=== PATIENT | female | born 1960 | race Caucasian/White ===

== ENCOUNTER 2020-04-02 11:49 | Observation (INO) | payer OTHER, SELFPAY ==
[2020-04-02] VITALS (8 sets, daily range): BP systolic 116–156; BP diastolic 69–83; PULSE 92–102; RESP 17–19; TEMP 36.2–36.8; O2SAT 94–96; BMI 36.4; BMI 36.6; BMI 36.7
--- NOTE | 2020-04-02 12:05 | EKG12_ITS ---
Test Reason : CP Blood Pressure : / mmHG Vent. Rate : 096 BPM Atrial Rate : 096 BPM P-R Int : 146 ms QRS Dur : 122 ms QT Int : 368 ms P-R-T Axes : 036 020 021 degrees QTc Int : 464 ms Normal sinus rhythm Right bundle branch block Abnormal ECG Confirmed by HERNESTO STEWART, TORIBIO ([id number]), communications editor GI CHO ([id number]) on 04/05/2020 11:25:51 AM Referred By: Confirmed By:TORIBIO ERIC MD
--- NOTE | 2020-04-02 12:05 | RAD_ITS ---
STUDY: X-RAY CHEST REASON FOR EXAM: Female, 59 years old. Onset CP this morning, left arm and jaw pain TECHNIQUE: Single AP portable view of the chest. COMPARISON: 07/10/2017 FINDINGS: The lungs are clear and expanded. There is no demonstrated pleural abnormality. Normal size heart. Normal mediastinum and mary. Normal visualized pulmonary arteries. Normal visualized aortic arch and descending thoracic aorta. Normal visualized thoracic spine. Normal visualized ribs, clavicles, and shoulders. There is no demonstrated abnormality of the visualized soft tissue structures of the upper abdomen. RAD/Chest 1 View (Portable) IMPRESSION: Normal x-ray examination of the chest. Electronically Signed: Serg Nugent MD at 12:36 EDT Tel , Service support ,
--- NOTE | 2020-04-02 12:09 | ED.DCSUM_ITS ---
- ER Visit Summary Date of Service: 04/02/20 Chief Complaint: [Chest pain] History of Present Illness: The patient is a 59 F [presents the emergency department complaint of chest discomfort that started around 7 AM. Patient states that initially she had discomfort as kind of started in her left armpit and left chest. Patient then noted some discomfort in her shoulder as well as neck and jaw and left arm. Symptoms initially somewhat continuous but seems to have let up at this time. Patient initially took 4 baby aspirin at home. Patient denied any nausea or vomiting with this as well as denied any shortness of breath. She is never had discomfort like this before. She states that she got a little bit sweaty while waiting for EMS to get there. Patient states that there is a significant family history of heart disease as she has a father who had a heart attack in his 40s and siblings that have all had heart attacks in their 50s. Her last stress test was in 2004 and was normal at that time. Patient has history of diabetes, hypertension, high cholesterol, and hypothyroidism. She denies recent travel or surgery. She has no history of PE or DVT.] Physical Examination: [HEENT-PERRLA, EOMI. Cranial nerves II through XII grossly intact. TMs clear. Mucous membranes moist. No adenopathy. Cardiovascular-regular rate and rhythm without murmur or ectopy Lungs-clear to auscultation, chest wall stable without crepitus or subcu emphysema Abdomen-normoactive bowel sounds, soft, nontender, no rebound or rigidity, no peritoneal signs. Extremities-intact ?4, normal range of motion, normal pulses, atraumatic] Test Results: [EKG obtained arrival shows sinus rhythm with a ventricular rate of 96 bpm with a right bundle branch block.] CBC with it was unremarkable. Chemistries unremarkable. Her blood glucose was elevated 360. Troponin was less than 0.015. Chest x-ray showed nothing acute. Emergency Department Course and Treatment: [IV line was established on arrival. Patient had already taken aspirin at home. Patient had an inch of Nitropaste placed to the anterior chest wall. 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 Patient heart score is a 6.] Disposition: [Admit] Impression: [Chest pain-rule out acute coronary syndrome] This note was generated with Dragon dictation software. It may contain incorrect words, spelling, and punctuation that were not noted in review of the chart prior to signing ED Disposition - Plan for ED Patient: Referrals: Marifer Edward DO [Primary Care Provider] -
[2020-04-02] MEDS: Nitroglycerin Oint 1 INCH PACKET TRANSDERM. (12:18)
[2020-04-02 12:20] LABS: Absolute Lymphocyte Count 1.86 X10^3/uL (0.83-4.51); Absolute Neutrophil Count 4.4 X10^3/uL (2.0-7.7); Basophil# 0.05 X10^3/uL; Basophil% 0.7 % (0-1); Eosinophil# 0.21 X10^3/uL; Hematocrit 42.8 % (37-47); Hemoglobin 14.1 g/dL (12.0-15.0); Lymphocyte # 1.86 X10^3/ul (4.0); Lymphocyte % 26.6 % (19-41); Mean Corp Hgb Conc 32.9 g/dL (32-36); Mean Corpuscular Hgb 27.6 pg (27.0-32.0); Mean Corpuscular Volume 83.8 fL (81-99); Mean Platelet Vol. 8.9 fl (6.2-12.0); Monocyte# 0.48 X10^3/uL; Monocyte% 6.9 % (0-10); NRBC Flagged by Analyzer 0 % (0-5); Neutrophil # 4.35 X10^3/uL (2.7-7.7); Neutrophil % 62.2 % (47-70); Platelet Count 235 K/mm3 (150-450); RBC Distribution Width CV 13.5 % (11.6-14.6); RBC Distribution Width SD 41.3 fl (35.1-43.9); Red Blood Count 5.11 M/mm3 (4.2-5.4)
[2020-04-02] MEDS: 0.9% Normal Saline 1,000 ML 150 ML IV ×2 (12:31→18:58)
[2020-04-02 12:32] LABS: Anion Gap 6 (5-15); BUN 26 mg/dL (7-18); BUN/Creat Ratio 20.3 RATIO (10-20); Calcium,Total 8.9 mg/dL (8.5-10.1); Chloride 98 mmol/L (98-107); Creatinine, Serum 1.28 mg/dL (0.55-1.02); EST Glomerular Filtration Rate 45 mL/min (>60); Est Glom Filt Rate - Afr Amer 54 mL/min (>60); Estimated Creatinine Clearance 49.91 ml/min; Glucose 360 mg/dL (74-106); Potassium 4.6 mmol/L (3.5-5.1); Sodium Level 135 mmol/L (136-145)
--- NOTE | 2020-04-02 12:39 | HP.PCM_ITS ---
History of Present Illness Date of Admission: 04/02/20 Chief Complaint: chest pain The patient is a 59 year old F with a past medical history of diabetes mellitus, hypertension and hyperlipidemia. She was admitted through the ED on 04/02/2020 with a complaint of left-sided chest pain was started in the early hours of this morning at around 7 AM. She denies the pain was sharp or pressure-like but just this was an uncomfortable feeling that was present in the left side, beneath her left breast. She denied any associated lightheadedness or palpitations and denied any dizziness. 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 This increased sweating resolved immediately she got into the squad vehicle. She has not had pain like this before. However she does have a very strong family history of heart disease and states her 5 siblings have all had heart disease with a couple of her siblings in their 50s from heart disease. Her father also from heart disease in his 60s and her mother also had heart disease though she lived to be in her 80s. She denies any history of long distance travel no any history of DVT or PE. In the ED, at time of review, vitals showed temperature of 98.2 with blood pressure of 136/75, pulse rate of 97 and respiratory of 19. She was saturating at 96% on room air. Chemistry showed creatinine of 1.28 with sodium of 135 and initial troponin was negative. CBC was unremarkable. Chest x-ray showed no acute cardiopulmonary process. EKG showed normal sinus rhythm with right bundle branch block which was not present on previous EKGs. She does say that she did an EKG at PCPs office and was abnormal and so she was supposed to have an outpatient echo done but has not yet done it. D-dimer is pending. She has been admitted to be managed for chest pain rule out ACS. [] Past Medical History Past Medical History (Chronic Problems): Chronic Problems Hyperglyceridemia (Chronic) Hypothyroidism (Chronic) Type II diabetes mellitus (Chronic) Allergies Penicillins Allergy (Verified 06/25/14 12:05) Unknown Sulfa (Sulfonamide Antibiotics) Allergy (Verified 04/02/20 11:55) Rash Home Medications: Ambulatory Orders Medication Instructions Recorded Aspirin [Aspirin, Baby] 81 mg PO DAILY@0800 06/25/14 Cholecalciferol (Vitamin D3) 50,000 unit PO QWEEK 06/25/14 [Vitamin D3] Levothyroxine [Synthroid] 100 mcg PO DAILY 06/25/14 metFORMIN (XR) [Glucophage Xr] 1,000 mg PO DAILY 06/25/14 Hydrochlorothiazide 12.5 mg PO DAILY 08/24/14 Lisinopril [Zestril] 20 mg PO DAILY 08/24/14 Multivitamins,Therapeutic 1 tablet PO DAILY 08/24/14 [Multivitamin] Atenolol [Tenormin (beta liss)] 12.5 mg PO DAILY 08/31/14 Fenofibric Acid [Fenoglide] 135 mg PO DAILY 04/02/20 Insulin Glargine,Hum.rec.anlog 65 units SQ DAILY 04/02/20 [Violet Chacon] Surgical History: noncontributory Psychiatric History: No pertinent psych hx [employer] History: No pertinent [employer] history Lives: Alone Smoking Status: Never smoker Alcohol: None Drugs: None - *Family History Maternal History Items: Hypertension Paternal History Items: Heart Disease Sibling History Items: Heart Disease Review of Systems Constitutional: Denies: Chills, Fever, Weight Change HEENT: Denies: Head Aches, Sinus Congestion, Sinus Drainage Cardiovascular: Reports: Chest Pain, Chest Pressure, Chest Tightness. Denies: Heaviness, Light Headedness, Orthopnea, Palpitations, Paroxysmal Noc. Dyspnea Respiratory: Denies: Cough, Shortness of breath at rest, Sputum production Gastrointestinal: Denies: Abdominal Pain, Nausea, Vomiting Genitourinary: Denies: Dysuria Musculoskeletal: Denies: Joint Pain, Joint Tenderness Skin: Denies: Rash, Wounds Neurological: Denies: Numbness, Tingling, Focal weakness Psychiatric: Denies: Anxiety, Depression, Homicidal Ideations, Suicidal Ideations Hematologic/ Lymphatic: Denies: Easy Bruising, Easy Bleeding VTE Information - Inpt Only VTE Present on Admission: No VTE Pharm Prophylaxis ordered?: Yes - Physical Exam Vitals/I&O's: Vital Signs Temp Pulse Resp BP Pulse Ox 98.1 F 102 H 17 156/83 H 96 04/02/20 11:50 04/02/20 11:50 04/02/20 11:50 04/02/20 11:50 04/02/20 11:50 Oxygen Delivery Method Room Air Weight: 254 lb 3.088 oz Body Mass Index (BMI) 36.4 Finger Stick Blood Glucose 180 General: Alert, Oriented x3, Cooperative HEENT: Atraumatic, PERRLA, EOMI, Normocephalic Oral: Moist Mucosa Neck: Supple, No JVD, Negative Carotid Bruits Lungs: Clear to auscultation, Normal air movement, No rhonchi, No wheeze, No rales Cardiovascular: Regular rate, Regular Rhythm, Normal S1, Normal S2, No murmurs Abdomen: Bowel Sounds Present, Soft, Non Tender, Non-Distended, No Hepato- splenomegaly Extremities: No clubbing, No cyanosis, No edema, Capillary Refill Less than 3 Seconds Skin: No rashes, No breakdown Musculoskeletal: No Tenderness to Palpation of Joints or Extremities Neurological: Cranial nerves II-XII grossly intact Psych/Mental Status: Normal Affect, Appropriate, Alert and oriented to time, place, person, mood and affect Laboratory Results 04/02/20 12:08: WBC 7.0, RBC 5.11, Hgb 14.1, Hct 42.8, MCV 83.8, MCH 27.6, MCHC 32.9, RDW Std Deviation 41.3, RDW Coeff of Renita 13.5, Plt Count 235, MPV 8.9, Immature Gran % (Auto) 0.600, Neut % (Auto) 62.2, Lymph % (Auto) 26.6, [place] % (Auto) 6.9, Eos % (Auto) 3.0, Baso % (Auto) 0.7, Absolute Neuts (auto) 4.4, Absolute Lymphs (auto) 1.86, Nucleated RBC % 0 04/02/20 12:08: Sodium 135 L, Potassium 4.6, Chloride 98, Carbon Dioxide 31.0, Anion Gap 6, BUN 26 H, Creatinine 1.28 H, Estim Creat Clear Calc 49.91, Est GFR (MDRD) Af Amer 54 L, Est GFR (MDRD) Non-Af 45 L, BUN/Creatinine Ratio 20.3 H, Glucose 360 H, Calcium 8.9, Troponin I < 0.015 Current Medications Sodium Chloride () 1,000 mls @ 150 mls/hr IV .Q6H40M [facility] Last Admin: 04/02/20 12:31 Dose: 150 mls/hr Documented by: Assessment/Plan All Active Problems Numbness and tingling of left arm and leg (Acute) Hypertensive urgency (Acute) 59 y/o admitted with a complaint of chest pain # Chest pain to r.o ACS * Admit to PCU with telemetry * Cycle troponins. initial troponin was negative. * Sublingual nitroglycerin PRN. P.o. aspirin 81 mg daily. * EKG showed normal sinus rhythm with right bundle branch block. * D Dimer pending, if elevated, will order CTA chest to rule out PE * patient is high risk for heart disease, with her having hypertension, hyperlipidemia and diabetes mellitus, as well as a very strong family history of heart disease. will discuss with cardiology about getting stress test vs PE * 2D echo ordered. * #Elevated creatinine: Creatinine is 1.28 and baseline is 0.9-1. Hydrate gently with IV fluids and monitor. #Hypertension: On atenolol and lisinopril as well as HCTZ #Type 2 diabetes mellitus: * On Lantus 65 units daily and metformin thousand milligrams daily. * Hold metformin for now. * Insulin sliding scale. Accu-Cheks AC at bedtime. #Hyperlipidemia: On fenofibrate DVT prophylaxis: Lovenox CODE STATUS: Full code * Patient counseled extensively about different types of CODE STATUS including full code, DNR CCA and DNR CCA. Patient elects to be full code. * Total [id number] time 17 minutes. # OBSV E&M: 83213 Initial observation care L2 Procedures: [id number] Advncd Care Plan 30 Min
--- NOTE | 2020-04-02 12:39 | PCM.DC.SUM ---
Discharge Date and Diagnosis Date of Admission: 06/25/14 - Secondary Discharge Diagnosis Chronic Problems: Chronic Problems Hyperglyceridemia (Chronic) Hypothyroidism (Chronic) Type II diabetes mellitus (Chronic) Hospital Course and Treatment Imaging Results: 04/02/20 12:05 Chest 1 View (Portable) [RAD] Stat Operations: None Summary of Care Provided: The patient is a 59 year old F [] - Physical Exam Vitals/I&O's: Vital Signs Temp Pulse Resp BP Pulse Ox 98.1 F 102 H 17 156/83 H 96 04/02/20 11:50 04/02/20 11:50 04/02/20 11:50 04/02/20 11:50 04/02/20 11:50 Oxygen Delivery Method Room Air Weight: 254 lb 3.088 oz Body Mass Index (BMI) 36.4 Finger Stick Blood Glucose 180 Laboratory Results 04/02/20 12:08: WBC 7.0, RBC 5.11, Hgb 14.1, Hct 42.8, MCV 83.8, MCH 27.6, MCHC 32.9, RDW Std Deviation 41.3, RDW Coeff of Renita 13.5, Plt Count 235, MPV 8.9, Immature Gran % (Auto) 0.600, Neut % (Auto) 62.2, Lymph % (Auto) 26.6, [place] % (Auto) 6.9, Eos % (Auto) 3.0, Baso % (Auto) 0.7, Absolute Neuts (auto) 4.4, Absolute Lymphs (auto) 1.86, Nucleated RBC % 0 04/02/20 12:08: Sodium 135 L, Potassium 4.6, Chloride 98, Carbon Dioxide 31.0, Anion Gap 6, BUN 26 H, Creatinine 1.28 H, Estim Creat Clear Calc 49.91, Est GFR (MDRD) Af Amer 54 L, Est GFR (MDRD) Non-Af 45 L, BUN/Creatinine Ratio 20.3 H, Glucose 360 H, Calcium 8.9, Troponin I < 0.015 Current Medications Sodium Chloride () 1,000 mls @ 150 mls/hr IV .Q6H40M [facility] Last Admin: 04/02/20 12:31 Dose: 150 mls/hr Documented by: Home Medications: Medications to take at Discharge Aspirin [Aspirin, Baby] 81 mg PO DAILY@0800 06/25/14 Cholecalciferol (Vitamin D3) [Vitamin D3] 50,000 unit PO QWEEK 06/25/14 Levothyroxine [Synthroid] 100 mcg PO DAILY 06/25/14 metFORMIN (XR) [Glucophage Xr] 1,000 mg PO DAILY 06/25/14 Hydrochlorothiazide 12.5 mg PO DAILY 08/24/14 Lisinopril [Zestril] 20 mg PO DAILY 08/24/14 Multivitamins,Therapeutic [Multivitamin] 1 tablet PO DAILY 08/24/14 Atenolol [Tenormin (beta liss)] 12.5 mg PO DAILY 08/31/14 Fenofibric Acid [Fenoglide] 135 mg PO DAILY 04/02/20 Insulin Glargine,Hum.rec.anlog [Violet Chacon] 65 units SQ DAILY 04/02/20 Primary Care Physician: Marifer Edward DO [Primary Care Provider] - Medical Necessity - Tobacco Use Smoking Status: Never smoker
--- NOTE | 2020-04-02 13:30 | EKG12_ITS ---
Test Reason : AM EKG Blood Pressure : / mmHG Vent. Rate : 087 BPM Atrial Rate : 087 BPM P-R Int : 148 ms QRS Dur : 128 ms QT Int : 394 ms P-R-T Axes : 049 020 017 degrees QTc Int : 474 ms Normal sinus rhythm Right bundle branch block Abnormal ECG When compared with ECG of 02-APR-2020 14:07, MANUAL COMPARISON REQUIRED, DATA IS UNCONFIRMED Confirmed by HERNESTO STEWART, TORIBIO ([id number]), editorial director GI CHO ([id number]) on 04/05/2020 11:39:46 AM Referred By: LOPEZ Confirmed By:TORIBIO ERIC MD
[2020-04-02 13:31] LABS: D-Dimer Quantitative (DVT/PE) 0.52 FEU/ug/m (0.27-0.49)
--- NOTE | 2020-04-02 13:49 | CT_ITS ---
STUDY: CTA CHEST REASON FOR EXAM: Female, 59 years old. Left sided chest pain today, elevated D-dimer. Hx hypertension, diabetes. RADIATION DOSAGE (If Supplied By Facility): CTDIvol = ( 12.64 ) mGy, DLP = ( 533.80 ) mGycm TECHNIQUE: The examination was performed with the intravenous administration of IV 100mL Isovue-370. Post-processing of the angiographic images was performed, with multiplanar reformation and 3D reconstruction. Individualized dose optimization techniques were used for this CT. COMPARISON: None. FINDINGS: The study is technically suboptimal due to low/suboptimal attenuation the pulmonary artery making visualization of distal branches difficult. Central pulmonary arteries are clear. Aorta is intact Lungs are clear. There is no pneumothorax, pulmonary edema or pleural effusions. Mediastinal contents are normal. Osseous structures are intact. The liver is severely enlarged and fatty infiltrated. CT/CTA Chest W/WO Contrast IMPRESSION: 1. Moderately technically limited exam. 2. No large central pulmonary embolism. 3. Refer to ultrasonography of the lower exterminates for further risk stratification of a patient at risk of venous thrombi embolic disease due to inability to evaluate for small/peripheral PE. 4. Hepatomegaly and severe steatosis, possibly impending cirrhosis. Hepatology referral is advised. Electronically Signed: Sania Ferguson, at 15:16 EDT Tel , Service support ,
[2020-04-02 15:45] LABS: Hemoglobin A1c 10.6 % (3.8-5.6)
[2020-04-02 16:26] LABS: Bedside Glucose 119 mg/dL (70-110)
[2020-04-02] MEDS: 0.9% Saline Lock 10 ML Syringe IV (21:10)
[2020-04-02] MEDS: Insulin Lispro 100 UNIT/ML INSULN.PEN SC (21:10)
[2020-04-02 21:36] LABS: Bedside Glucose 203 mg/dL (70-110)
[2020-04-03] MEDS: Acetaminophen 325 MG Tablet 650 MG PO (00:43)
[2020-04-03 02:55] VITALS: PULSE 102
[2020-04-03 03:10] VITALS: BP 117/62; PULSE 89; RESP 16; TEMP 37.1; O2SAT 97
--- NOTE | 2020-04-03 05:55 | EKG12_ITS ---
Test Reason : C.P. ADMIT Blood Pressure : / mmHG Vent. Rate : 091 BPM Atrial Rate : 091 BPM P-R Int : 140 ms QRS Dur : 130 ms QT Int : 390 ms P-R-T Axes : 046 009 019 degrees QTc Int : 479 ms Normal sinus rhythm Right bundle branch block Abnormal ECG When compared with ECG of 02-APR-2020 11:59, MANUAL COMPARISON REQUIRED, DATA IS UNCONFIRMED Confirmed by HERNESTO STEWART, TORIBIO ([id number]), food editor GI CHO ([id number]) on 04/05/2020 11:40:11 AM Referred By: LOPEZ Confirmed By:TORIBIO ERIC MD
--- NOTE | 2020-04-03 05:55 | ECHOCS_ITS ---
Reason For Study: CP Procedure This was a 2D Doppler, Color Flow transthoracic echocardiogram. The study was technically difficult. Contrast injection was performed. Exam performed portable in patient room. Left Ventricle Normal LV size. Left ventricular systolic function is normal. The estimated ejection fraction is 60 %. Stage 1 diastolic dysfunction. No regional wall motion abnormalities noted. Right Ventricle Normal RV size. Normal systolic function. Atria The left atrium is mildly enlarged. Normal right atrium. Mitral Valve Normal mitral valve. Tricuspid Valve Normal tricuspid valve. Aortic Valve Trisinus/trileaflet aortic valve. Pulmonic Valve Normal pulmonic valve. Great Vessels Normal aortic root. The pulmonary artery is normal size. Normal inferior vena cava. Pericardium/Pleural No pericardial effusion. Medication Diluted definity 4ml given slow IV push to enhance endocardial definition. MMode/2D Measurements & Calculations LVIDd: 4.4 cm IVSd: 1.3 cm Ao root diam: 3.4 cm LVIDs: 3.0 cm LVPWd: 1.1 cm LA dimension: 3.9 cm FS: 31.8 % LAV(MOD-bp): 61.9 ml LA A4 area: 20.8 cm2 RA A4 area: 14.3 cm2 LAV(MOD-bp) Indexed: 26.8 ml/m2 LAV(MOD-sp2): 56.3 ml LAV(MOD-sp4): 60.5 ml Time Measurements MV dec time: 0.25 sec Doppler Measurements & Calculations MV E max [place]: 66.4 cm/sec Lat Peak E' [place]: 7.8 cm/sec Med Peak E' [place]: 7.3 cm/sec MV A max [place]: 73.2 cm/sec E/E' lat: 8.5 E/E' med: 9.1 MV E/A: 0.91 MV V2 max: 75.5 cm/sec MV P1/2t max [place]: 69.5 cm/sec Ao V2 max: 130.1 cm/sec MV max P.3 mmHg MV P1/2t: 76.2 msec Ao max P.8 mmHg MV V2 mean: 48.3 cm/sec MV dec slope: 266.9 cm/sec2 MV mean P.1 mmHg MV V2 VTI: 18.6 cm MVA(P1/2t): 2.9 cm2 LV V1 max: 99.0 cm/sec PA V2 max: 112.7 cm/sec LV V1 max P.9 mmHg Interpretation Summary Normal LV size. Left ventricular systolic function is normal. The estimated ejection fraction is 60 %. Stage 1 diastolic dysfunction. Contrast injection was performed. Ordering Physician: Leanna Hernandez Referring Physician: Marifer Edward M.D. Performed By: Joe Beckford RCS
[2020-04-03] MEDS: Lisinopril 20 MG Tablet PO (06:41)
[2020-04-03] MEDS: Aspirin 81 MG TAB.CHEW PO (06:41)
[2020-04-03] MEDS: Levothyroxine 100 MCG Tablet PO (06:41)
[2020-04-03 06:48] LABS: Absolute Lymphocyte Count 2.34 X10^3/uL (0.83-4.51); Absolute Neutrophil Count 3.6 X10^3/uL (2.0-7.7); Basophil# 0.05 X10^3/uL; Basophil% 0.7 % (0-1); Eosinophil# 0.27 X10^3/uL; Hemoglobin 13.5 g/dL (12.0-15.0); Lymphocyte # 2.34 X10^3/ul (4.0); Lymphocyte % 34.9 % (19-41); Mean Corp Hgb Conc 32.9 g/dL (32-36); Mean Corpuscular Hgb 27.9 pg (27.0-32.0); Mean Corpuscular Volume 84.7 fL (81-99); Mean Platelet Vol. 8.8 fl (6.2-12.0); Monocyte# 0.42 X10^3/uL; Monocyte% 6.3 % (0-10); NRBC Flagged by Analyzer 0 % (0-5); Neutrophil # 3.59 X10^3/uL (2.7-7.7); Neutrophil % 53.7 % (47-70); Platelet Count 214 K/mm3 (150-450); RBC Distribution Width CV 13.5 % (11.6-14.6); RBC Distribution Width SD 41.8 fl (35.1-43.9); Red Blood Count 4.84 M/mm3 (4.2-5.4); White Blood Count 6.7 K/mm3 (4.4-11.0)
[2020-04-03 06:56] LABS: Bedside Glucose 154 mg/dL (70-110)
[2020-04-03 07:21] LABS: Anion Gap 5 (5-15); BUN 19 mg/dL (7-18); BUN/Creat Ratio 21.4 RATIO (10-20); Calcium,Total 8.5 mg/dL (8.5-10.1); Chloride 104 mmol/L (98-107); Creatinine, Serum 0.89 mg/dL (0.55-1.02); EST Glomerular Filtration Rate 68 mL/min (>60); Est Glom Filt Rate - Afr Amer 83 mL/min (>60); Estimated Creatinine Clearance 71.78 ml/min; Glucose 161 mg/dL (74-106); Potassium 3.7 mmol/L (3.5-5.1); Sodium Level 139 mmol/L (136-145)
[2020-04-03 07:22] VITALS: PULSE 88
--- NOTE | 2020-04-03 07:54 | CON.PCM_ITS ---
Reason for Consult Date of Consultation: 04/03/20 Reason for Consultation: Chest pain History of Present Illness: The patient is a 59 year old F with a past medical history of diabetes mellitus, hypertension and hyperlipidemia. She was admitted through the ED on 04/02/2020 with a complaint of left-sided chest pain which started in the early hours of Friday morning at around 7 AM. She denies the pain was sharp or pressure-like but just this was an uncomfortable feeling that was present in the left side, beneath her left breast. She denied any associated lightheadedness or palpitations and denied any dizziness. 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 This increased sweating resolved immediately she got into the squad vehicle. She has not had pain like this before. However she does have a very strong family history of heart disease and states her 5 siblings have all had heart disease with a couple of her siblings in their 50s from heart disease. Her father also from heart disease in his 60s and her mother also had heart disease though she lived to be in her 80s. She denies any history of long distance travel no any history of DVT or PE. In the ED, at time of review, vitals showed temperature of 98.2 with blood pressure of 136/75, pulse rate of 97 and respiratory of 19. She was saturating at 96% on room air. She has not had any further chest pain since admission. Her EKG did demonstrate a right bundle branch block without any acute changes. Cardiology was called for further evaluation and management. Past Medical History Allergies/Adverse Reactions: Allergies Penicillins Allergy (Verified 06/25/14 12:05) Unknown Sulfa (Sulfonamide Antibiotics) Allergy (Verified 04/02/20 11:55) Rash Home Medications: Ambulatory Orders Medication Instructions Recorded Aspirin [Aspirin, Baby] 81 mg PO DAILY@0800 06/25/14 Cholecalciferol (Vitamin D3) 50,000 unit PO QWEEK 06/25/14 [Vitamin D3] Levothyroxine [Synthroid] 100 mcg PO DAILY 06/25/14 metFORMIN (XR) [Glucophage Xr] 1,000 mg PO DAILY 06/25/14 Hydrochlorothiazide 12.5 mg PO DAILY 08/24/14 Lisinopril [Zestril] 20 mg PO DAILY 08/24/14 Multivitamins,Therapeutic 1 tablet PO DAILY 08/24/14 [Multivitamin] Atenolol [Tenormin (beta liss)] 12.5 mg PO DAILY 08/31/14 Fenofibric Acid [Fenoglide] 135 mg PO DAILY 04/02/20 Insulin Glargine,Hum.rec.anlog 65 units SQ DAILY 04/02/20 [Violet Chacon] Past Medical History (Chronic Problems): Chronic Problems Hyperglyceridemia (Chronic) Hypothyroidism (Chronic) Type II diabetes mellitus (Chronic) Surgical History: noncontributory Psychiatric History: No pertinent psych hx PRICING CONSULTANT History: No pertinent PRICING CONSULTANT history - *Family History Sibling History Items: Heart Disease Maternal History Items: Hypertension Paternal History Items: Heart Disease Lives: Alone Smoking Status: Never smoker Alcohol: None Drugs: None Review of Systems - Review of Systems General: Denies: Fever, Night Sweats, Fatigue HEENT: Denies: Vision Change Cardiovascular: Reports: Chest Discomfort, Chest Discomfort at Rest. Denies: Shortness of Breath, Orthopnea, PND, Peripheral Edema, Palpitations, Lightheadedness, Dizziness, Near Syncope, Syncope Respiratory: Denies: Cough, Sputum Production, Hemoptysis Gastrointestinal: Denies: Hematemesis, Hematochezia, Melena Genitourinary: Denies: Dysuria, Hematuria Skin: Denies: Rash Psychiatric: Denies: Anxiety Endocrine: Denies: Heat Intolerance Hematologic/ Lymphatic: Denies: Anemia Subjectve: Pleasant lady in no distress Objective: Vital Signs Temp Pulse Resp BP Pulse Ox 98.8 F 88 16 117/62 97 04/03/20 03:10 04/03/20 07:22 04/03/20 03:10 04/03/20 03:10 04/03/20 03:10 Oxygen Delivery Method Room Air Weight: 255 lb 8.252 oz Body Mass Index (BMI) 36.6 Finger Stick Blood Glucose 180 Intake and Output for Last 24 Hours 04/01/20 04/02/20 04/03/20 23:59 23:59 23:59 Intake Total 1467.5 / 1947.5 1480 / 1480 Balance 1467.5 / 1947.5 1480 / 1480 General: Awake, Alert, Oriented x 3 HEENT: PERRL, EOMI, Sclera Non Icteric Neck: Supple, Good ROM, No Lymph Node Enlargement Lungs: Clear to auscultation Cardiovascular: Regular Rhythm, Normal S1, Normal S2, No Murmurs, No Rubs, No Gallops Vascular: No Carotid Bruits, Normal Femoral Pulses, Normal Radial Pulses, Normal Dorsalis Pedal Pulse, Normal Posterior Tibial Pulses Abdomen: Bowel Sounds Present, Soft, Non Tender, No HSM, No Organomegaly Extremities: No Cyanosis, No Clubbing, No edema Musculoskeletal: No Erythema Skin: No Rashes Lymphatic: No Lymph Node Enlargement Neurological: No Focal Motor or Sensory Deficit 04/02/20 12:08: WBC 7.0, RBC 5.11, Hgb 14.1, Hct 42.8, MCV 83.8, MCH 27.6, MCHC 32.9, Plt Count 235, MPV 8.9, Immature Gran % (Auto) 0.600, Neut % (Auto) 62.2, Lymph % (Auto) 26.6, [place] % (Auto) 6.9, Eos % (Auto) 3.0, Baso % (Auto) 0.7, Absolute Neuts (auto) 4.4, Nucleated RBC % 0 04/02/20 12:08: Sodium 135 L, Potassium 4.6, Chloride 98, Carbon Dioxide 31.0, Anion Gap 6, BUN 26 H, Creatinine 1.28 H, Est GFR (MDRD) Af Amer 54 L, Est GFR (MDRD) Non-Af 45 L, BUN/Creatinine Ratio 20.3 H, Glucose 360 H, Calcium 8.9, Troponin I < 0.015 04/02/20 12:08: D-Dimer Quant (PE/DVT) 0.52 H* 04/02/20 15:20: Troponin I < 0.015 04/02/20 15:20: Hemoglobin A1c 10.6 H 04/02/20 18:02: Troponin I < 0.015 04/03/20 06:37: WBC 6.7, RBC 4.84, Hgb 13.5, Hct 41.0, MCV 84.7, MCH 27.9, MCHC 32.9, Plt Count 214, MPV 8.8, Immature Gran % (Auto) 0.400, Neut % (Auto) 53.7, Lymph % (Auto) 34.9, [place] % (Auto) 6.3, Eos % (Auto) 4.0, Baso % (Auto) 0.7, Absolute Neuts (auto) 3.6, Nucleated RBC % 0 04/03/20 06:37: Sodium 139, Potassium 3.7, Chloride 104, Carbon Dioxide 30.0, Anion Gap 5, BUN 19 H, Creatinine 0.89, Est GFR (MDRD) Af Amer 83, Est GFR (MDRD) Non-Af 68, BUN/Creatinine Ratio 21.4 H, Glucose 161 H, Calcium 8.5 Rhythm: EKG: Normal sinus rhythm with a right bundle branch block Assessment/Plan 1. Chest pain * Patient came in with chest discomfort with some atypical features. My recommendation at this time would be to proceed with an exercise myocardial perfusion stress test especially since her EKG is unchanged and her troponins are completely normal. Depending on the findings further recommendations will be made. Aggressive risk factor modification would need to be continued non etheless. * 2. Hypertension * Blood pressure was elevated when patient presented. Will optimize blood pressure medication with the beta-liss and PERNELL inhibitor as appropriate. * 3. Risk factor modification * Would recommend aggressively modifying risk factors. * * Thank you for allowing me to participate in the care of your patient. Please don't hesitate to call if any issues arise.
[2020-04-03 08:26] LABS: Cholesterol 164 mg/dL (200); High Density Lipoprotein 28 mg/dL; Triglycerides 414 mg/dL
[2020-04-03 09:05] VITALS: BP 140/70; PULSE 89; RESP 16; TEMP 36.4; O2SAT 92
[2020-04-03 11:00] VITALS: BP 148/65; PULSE 94; RESP 16; TEMP 36.4; O2SAT 94
--- NOTE | 2020-04-03 11:11 | STRESSREP ---
Stress Test Report Pharmacologic myocardial perfusion stress test. 59-year-old lady with a history of chest pain. Stress protocol: Resting EKG demonstrates normal sinus rhythm with a rate of 90 bpm and a right bundle branch block. 0.4 mg of regadenoson was infused per usual protocol followed by rapid intravenous saline flush injection continuous EKG monitoring was performed. At rest there were no ST or T wave changes noted to suggest abnormal flow reserve at peak infusion nonspecific ST-T wave changes were noted with no meet the criteria for ischemia. No clinical angina was noted. Myocardial perfusion protocol. 14.6 mCi of technetium 99m sestamibi was injected at rest. 0.4 mg of regadenoson was infused per usual protocol. At peak infusion 44.8 mCi of technetium 99m sestamibi was injected stress images were obtained stress and rest images were reconstructed and compared in the short axis vertical long horizontal long axis. Gated images were also obtained per Perfusion SPECT analysis: Review of the stress images demonstrate normal uptake of tracer noted in all areas of the myocardium the resting images similar demonstrate normal uptake of tracer noted in all areas of the myocardium. No areas of reversibility are noted suggest ischemia no previous infarct is noted. Gated SPECT analysis: The gated ejection fraction is 80%. Conclusion: Normal pharmacologic myocardial perfusion stress test. Preserved ejection fraction.
--- NOTE | 2020-04-03 11:32 | DCINST_ITS ---
You will use the following diet at home:: Calorie/Carbohydrate Controlled (specify 1200, 1400, etc), Cardiac Discharge Activity: Return to Normal Activity Call your doctor if you observe: Shortness of breath, Dizziness, Fainting spells, Chest pain Allergies/Adverse Reactions: Allergies Penicillins Allergy (Verified 06/25/14 12:05) Unknown Sulfa (Sulfonamide Antibiotics) Allergy (Verified 04/02/20 11:55) Rash Medications to take at Discharge Aspirin [Aspirin, Baby] 81 mg PO DAILY@0800 06/25/14 Cholecalciferol (Vitamin D3) [Vitamin D3] 50,000 unit PO QWEEK 06/25/14 Levothyroxine [Synthroid] 100 mcg PO DAILY 06/25/14 metFORMIN (XR) [Glucophage Xr] 1,000 mg PO DAILY 06/25/14 Hydrochlorothiazide 12.5 mg PO DAILY 08/24/14 Lisinopril [Zestril] 20 mg PO DAILY 08/24/14 Multivitamins,Therapeutic [Multivitamin] 1 tablet PO DAILY 08/24/14 Atenolol [Tenormin (beta liss)] 12.5 mg PO DAILY 08/31/14 Fenofibric Acid [Fenoglide] 135 mg PO DAILY 04/02/20 Insulin Glargine,Hum.rec.anlog [Toujeo Solostar] 65 units SQ DAILY 04/02/20 Primary Care Physician: Marifer Edward DO [Primary Care Provider] - Please follow up with your Primary Care Physician in: 1 Week Test Results: Test results from this visit will be discussed in further detail at your follow- up appointment, if applicable. Please Follow Up With: Shayne Gabriel MD When: 2 Weeks, may see HIGH SCHOOL DRAFTING TEACHER/PA Proposed Discharge Date: 04/03/20
[2020-04-03] MEDS: Fenofibrate 145 MG Tablet PO (11:42)
[2020-04-03] MEDS: hydroCHLOROthiazide 12.5mg 12.5 MG PO (11:43)
[2020-04-03] MEDS: Atenolol 25 MG Tablet 12.5 MG PO (11:43)
[2020-04-03] MEDS: Insulin Lispro 100 UNIT/ML INSULN.PEN SC (11:49)
[2020-04-03 11:56] LABS: Bedside Glucose 232 mg/dL (70-110)
--- NOTE | 2020-04-03 13:04 | DS.PCM_ITS ---
<Anne Pacheco SOLAR ELECTRIC PRACTITIONER - Last Filed: 04/03/20 13:16> Discharge Date and Diagnosis Date of Admission: 04/02/20 Date of Discharge: 04/03/20 - Primary Discharge Diagnosis Acute Problems: 1. Chest pain, ACS ruled out 2. Elevated creatinine due to mild dehydration, no acute kidney injury 3. Hypertension 4. Type 2 diabetes mellitus 5. Hyperlipidemia 6. Hypothyroidism - Secondary Discharge Diagnosis Chronic Problems: Chronic Problems Hyperglyceridemia (Chronic) Hypothyroidism (Chronic) Type II diabetes mellitus (Chronic) Hospital Course and Treatment Imaging Results: Diagnostic Data Chest X-Ray 04/02/20 12:05 IMPRESSION: Normal x-ray examination of the chest. Electronically Signed: Serg Nugent MD at 12:36 EDT Tel , Service support , Chest CTA 04/02/20 13:49 IMPRESSION: 1. Moderately technically limited exam. 2. No large central pulmonary embolism. 3. Refer to ultrasonography of the lower exterminates for further risk stratification of a patient at risk of venous thrombi embolic disease due to inability to evaluate for small/peripheral PE. 4. Hepatomegaly and severe steatosis, possibly impending cirrhosis. Hepatology referral is advised. Electronically Signed: Sania Ferguson at 15:16 EDT Tel , Service support , Dr. Gabriel- Cardiology Operations: None Procedures: 2-D Echocardiogram, Stress test Summary of Care Provided: The patient is a 59 year old F admitted 04/02/2020 due to chest pain. 1. Chest pain, ACS ruled out- troponin negative. EKG with bundle branch block pattern. No evidence of ST-T changes. Patient underwent stress test which was negative for ischemia. Gated ejection fraction 80%. Echocardiogram completed, report pending. Continue home aspirin and lipid reducing regimen. Follow-up with PCP in 1 week. Follow-up with cardiology in 2 weeks for routine outpatient follow-up. 2. Elevated creatinine due to mild dehydration, no acute kidney injury-resolved with hydration. 3. Hypertension-stable, continue atenolol, lisinopril. 4. Type 2 diabetes mellitus-continue oral and insulin regimen. Hemoglobin A1c 10.6%. Will need further glucose control and monitoring as outpatient. 5. Hyperlipidemia-continue fenofibric. 6. Hypothyroidism-continue Synthroid regimen. Patient seen and examined prior to discharge. Physical assessment as noted below. Patient is stable for discharge with follow up recommendations as noted above. This patient was seen by HITESH Hendrickson under the supervision of Dr. Lerner. - Physical Exam Vitals/I&O's: Vital Signs Temp Pulse Resp BP Pulse Ox 97.5 F L 94 16 148/65 H 94 04/03/20 11:00 04/03/20 11:00 04/03/20 11:00 04/03/20 11:00 04/03/20 11:00 Oxygen Delivery Method Room Air Weight: 255 lb 8.252 oz Body Mass Index (BMI) 36.6 Finger Stick Blood Glucose 180 Intake and Output for Last 24 Hours 04/01/20 04/02/20 04/03/20 23:59 23:59 23:59 Intake Total 1467.5 / 1947.5 1600 / 1600 Balance 1467.5 / 1947.5 1600 / 1600 General: Alert, Oriented x3, Cooperative HEENT: Atraumatic, PERRLA, EOMI, Normocephalic Neck: Supple, No JVD, Negative Carotid Bruits Lungs: Clear to auscultation, Normal air movement Cardiovascular: Regular rate, No murmurs Abdomen: Bowel Sounds Present, Soft, Non Tender Extremities: No clubbing, No cyanosis, No edema, Capillary Refill Less than 3 Seconds Skin: No rashes, No breakdown Musculoskeletal: No Tenderness to Palpation of Joints or Extremities Neurological: Cranial nerves II-XII grossly intact, Neuro grossly intact Psych/Mental Status: Normal Affect, Appropriate Laboratory Results 04/02/20 12:08: D-Dimer Quant (PE/DVT) 0.52 H* 04/02/20 15:20: Troponin I < 0.015 04/02/20 15:20: Hemoglobin A1c 10.6 H 04/02/20 16:19: POC Glucose 119 H 04/02/20 18:02: Troponin I < 0.015 04/02/20 21:04: POC Glucose 203 H 04/03/20 06:37: WBC 6.7, RBC 4.84, Hgb 13.5, Hct 41.0, MCV 84.7, MCH 27.9, MCHC 32.9, RDW Std Deviation 41.8, RDW Coeff of Renita 13.5, Plt Count 214, MPV 8.8, Immature Gran % (Auto) 0.400, Neut % (Auto) 53.7, Lymph % (Auto) 34.9, [place] % (Auto) 6.3, Eos % (Auto) 4.0, Baso % (Auto) 0.7, Absolute Neuts (auto) 3.6, Absolute Lymphs (auto) 2.34, Nucleated RBC % 0 04/03/20 06:37: Sodium 139, Potassium 3.7, Chloride 104, Carbon Dioxide 30.0, Anion Gap 5, BUN 19 H, Creatinine 0.89, Estim Creat Clear Calc 71.78, Est GFR (MDRD) Af Amer 83, Est GFR (MDRD) Non-Af 68, BUN/Creatinine Ratio 21.4 H, Glucos e 161 H, Calcium 8.5 04/03/20 06:37: Triglycerides 414 H, Cholesterol 164, LDL Cholesterol TNP, VLDL Cholesterol TNP, HDL Cholesterol 28 L 04/03/20 06:40: POC Glucose 154 H 04/03/20 11:36: POC Glucose 232 H Current Medications Acetaminophen (Tylenol) 650 mg PO Q4H PRN PRN PRN Reason: fever, pain -04/29 Last Admin: 04/03/20 00:43 Dose: 650 mg Documented by: Aspirin (Aspirin, Baby) 81 mg PO DAILY@0800 [facility] Last Admin: 04/03/20 06:41 Dose: 81 mg Documented by: Atenolol (Tenormin (Beta Linnea)) 12.5 mg PO DAILY [facility] Last Admin: 04/03/20 11:43 Dose: 12.5 mg Documented by: Dextrose (D50w Syringe) 0 gm IV X1 PRN; Protocol PRN Reason: Hypoglycemia Enoxaparin Sodium (Lovenox) 40 mg SC DAILY [facility] Last Admin: 04/03/20 11:27 Dose: Not Given Documented by: [facility]ibr[facility] (Tricor) [facility] Last Admin: 04/03/20 11:42 Dose: 145 mg Documented by: Glucagon () 1 mg IM .X1 PRN PRN Reason: Hypoglycemia Hydrochlorothiazide () 12.5 mg PO DAILY [facility] Last Admin: 04/03/20 11:43 Dose: 12.5 mg Documented by: Sodium Chloride () 500 mls @ 15 mls/hr IV PRN PRN PRN Reason: Blood Transfusion Sodium Chloride () 250 mls @ 15 mls/hr IV .[id number] PRN PRN Reason: Saline Flush Sodium Chloride () 250 mls @ 15 mls/hr IV .[id number] PRN PRN Reason: Additional IVPB Infusion Insulin Glargine (Lantus ([facility])) 65 units SC DAILY [facility] Last Admin: 04/03/20 11:44 Dose: 65 units Documented by: Insulin Human Lispro (Humalog Kwikpen ([facility])) 0 unit SC [facility]; Protocol Last Admin: 04/03/20 11:49 Dose: 4 units Documented by: Levothyroxine Sodium (Synthroid) 100 mcg PO DAILY@0600 [facility] Last Admin: 04/03/20 06:41 Dose: 100 mcg Documented by: Lisinopril (Zestril) 20 mg PO DAILY [facility] Last Admin: 04/03/20 06:41 Dose: 20 mg Documented by: Multivitamins (Multivitamin) [facility] Last Admin: 04/03/20 11:43 Dose: Not Given Documented by: Nitroglycerin (Nitrostat) 0.4 mg SUBLINGUAL Q5M PRN PRN Reason: CARDIAC/CHEST PAIN Ondansetron HCl (Zofran) 4 mg IV Q8H PRN PRN PRN Reason: NAUSEA/VOMITING Sodium Chloride () 10 - 40 ml IV UD PRN PRN Reason: SALINE FLUSH Last Admin: 04/02/20 21:10 Dose: 10 ml Documented by: Discharge Diet: No Restrictions Discharge Activity: Return to Normal Activity Call your doctor if you observe: Shortness of breath, Dizziness, Fainting spells, Chest pain Home Medications: Medications to take at Discharge Aspirin [Aspirin, Baby] 81 mg PO DAILY@0800 06/25/14 Cholecalciferol (Vitamin D3) [Vitamin D3] 50,000 unit PO QWEEK 06/25/14 Levothyroxine [Synthroid] 100 mcg PO DAILY 06/25/14 metFORMIN (XR) [Glucophage Xr] 1,000 mg PO DAILY 06/25/14 Hydrochlorothiazide 12.5 mg PO DAILY 08/24/14 Lisinopril [Zestril] 20 mg PO DAILY 08/24/14 Multivitamins,Therapeutic [Multivitamin] 1 tablet PO DAILY 08/24/14 Atenolol [Tenormin (beta linnea)] 12.5 mg PO DAILY 08/31/14 Fenofibric Acid [Fenoglide] 135 mg PO DAILY 04/02/20 Insulin Glargine,Hum.rec.anlog [Toudestineeo Solostar] 65 units SQ DAILY 04/02/20 Primary Care Physician: Marifer Edward DO [Primary Care Provider] - Please follow up with your Primary Care Physician in: 1 Week Please Follow Up With: Shayne Gabriel MD When: 2 Weeks, may see SOLAR ELECTRIC PRACTITIONER/PA Disposition: Home Minutes spent on discharge:: 35 Patient Condition:: Stable Medical Necessity - Tobacco Use Smoking Status: Never smoker Meaningful Use Info Meaningful Use Diagnoses (Choose all that apply): None applicable <Claudio Lerner F - Last Filed: 04/03/20 14:52> Discharge Date and Diagnosis - Secondary Discharge Diagnosis Chronic Problems: Chronic Problems Hyperglyceridemia (Chronic) Hypothyroidism (Chronic) Type II diabetes mellitus (Chronic) Hospital Course and Treatment Imaging Results: 04/03/20 05:55 Echo Complete W/ Contrast [ECHO] Routine Nuclear Stress Test - Chemical [NM] Routine Summary of Care Provided: The patient is a 59 year old F [] - Physical Exam Vitals/I&O's: Vital Signs Temp Pulse Resp BP Pulse Ox 97.5 F L 94 16 148/65 H 94 04/03/20 11:00 04/03/20 11:00 04/03/20 11:00 04/03/20 11:00 04/03/20 13:36 Oxygen Delivery Method Room Air Weight: 255 lb 8.252 oz Body Mass Index (BMI) 36.6 Finger Stick Blood Glucose 180 Intake and Output for Last 24 Hours 04/01/20 04/02/20 04/03/20 23:59 23:59 23:59 Intake Total 1467.5 / 1947.5 1600 / 1600 Balance 1467.5 / 1947.5 1600 / 1600 Laboratory Results 04/02/20 15:20: Troponin I < 0.015 09/13/20 15:20: Hemoglobin A1c 10.6 H 04/02/20 16:19: POC Glucose 119 H 04/02/20 18:02: Troponin I < 0.015 04/02/20 21:04: POC Glucose 203 H 04/03/20 06:37: WBC 6.7, RBC 4.84, Hgb 13.5, Hct 41.0, MCV 84.7, MCH 27.9, MCHC 32.9, RDW Std Deviation 41.8, RDW Coeff of Renita 13.5, Plt Count 214, MPV 8.8, Immature Gran % (Auto) 0.400, Neut % (Auto) 53.7, Lymph % (Auto) 34.9, [place] % (Auto) 6.3, Eos % (Auto) 4.0, Baso % (Auto) 0.7, Absolute Neuts (auto) 3.6, Absolute Lymphs (auto) 2.34, Nucleated RBC % 0 04/03/20 06:37: Sodium 139, Potassium 3.7, Chloride 104, Carbon Dioxide 30.0, Anion Gap 5, BUN 19 H, Creatinine 0.89, Estim Creat Clear Calc 71.78, Est GFR (MDRD) Af Amer 83, Est GFR (MDRD) Non-Af 68, BUN/Creatinine Ratio 21.4 H, G lucose 161 H, Calcium 8.5 04/03/20 06:37: Triglycerides 414 H, Cholesterol 164, LDL Cholesterol TNP, VLDL Cholesterol TNP, HDL Cholesterol 28 L 04/03/20 06:40: POC Glucose 154 H 04/03/20 11:36: POC Glucose 232 H Current Medications Acetaminophen (Tylenol) 650 mg PO Q4H PRN PRN PRN Reason: fever, pain -04/29 Last Admin: 04/03/20 00:43 Dose: 650 mg Documented by: Aspirin (Aspirin, Baby) 81 mg PO DAILY@0800 [facility] Last Admin: 04/03/20 06:41 Dose: 81 mg Documented by: Atenolol (Tenormin (Beta Linnea)) 12.5 mg PO DAILY [facility] Last Admin: 04/03/20 11:43 Dose: 12.5 mg Documented by: Dextrose (D50w Syringe) 0 gm IV X1 PRN; Protocol PRN Reason: Hypoglycemia Enoxaparin Sodium (Lovenox) 40 mg SC DAILY [facility] Last Admin: 04/03/20 11:27 Dose: Not Given Documented by: Fenofibrate (Tricor) [facility] Last Admin: 04/03/20 11:42 Dose: 145 mg Documented by: Glucagon () 1 mg IM .X1 PRN PRN Reason: Hypoglycemia Hydrochlorothiazide () 12.5 mg PO DAILY [facility] Last Admin: 04/03/20 11:43 Dose: 12.5 mg Documented by: Sodium Chloride () 500 mls @ 15 mls/hr IV PRN PRN PRN Reason: Blood Transfusion Sodium Chloride () 250 mls @ 15 mls/hr IV .[id number] PRN PRN Reason: Saline Flush Sodium Chloride () 250 mls @ 15 mls/hr IV .[id number] PRN PRN Reason: Additional IVPB Infusion Insulin Glargine (Lantus ([facility])) 65 units SC DAILY [facility] Last Admin: 04/03/20 11:44 Dose: 65 units Documented by: Insulin Human Lispro (Humalog Kwikpen ([facility])) 0 unit SC [facility]; Protocol Last Admin: 04/03/20 11:49 Dose: 4 units Documented by: Levothyroxine Sodium (Synthroid) 100 mcg PO DAILY@0600 [facility] Last Admin: 04/03/20 06:41 Dose: 100 mcg Documented by: Lisinopril (Zestril) 20 mg PO DAILY [facility] Last Admin: 04/03/20 06:41 Dose: 20 mg Documented by: Multivitamins (Multivitamin) [facility] Last Admin: 04/03/20 11:43 Dose: Not Given Documented by: Nitroglycerin (Nitrostat) 0.4 mg SUBLINGUAL Q5M PRN PRN Reason: CARDIAC/CHEST PAIN Ondansetron HCl (Zofran) 4 mg IV Q8H PRN PRN PRN Reason: NAUSEA/VOMITING Sodium Chloride () 10 - 40 ml IV UD PRN PRN Reason: SALINE FLUSH Last Admin: 04/02/20 21:10 Dose: 10 ml Documented by: Addendum: Dr. Lerner I personally examined the patient and reviewed the chart. I agree with the above. 59-year-old female presented to the ER with left-sided chest pain. She had normal troponins and a nonischemic EKG. Because of her history of hypertension, hyperlipidemia, diabetes the case was discussed with cardiology and placed on consult. She underwent an exercise stress test today which was unremarkable. And her echo also showed an EF of 60% with stage I diastolic dysfunction. On the day of discharge her chest pain had resolved and she felt like she can go home today. Because she had a d-dimer that was slightly elevated 2.51 which is normal for her age, she had a CT of the chest which did not demonstrate a PE. Her plan for discharge was discussed and she expressed the risks and benefits of going home. OBSV E&M: 08292 Observation care discharge
[2020-04-03 13:36] VITALS: O2SAT 94
== END 2020-04-03 11:33 | disposition home or self-care (01) ==
LOC: ED 12:32 → PCU 12:57
PROVIDERS: Internal Medicine Cardiovascular Disease; Admitting Provider Student in an Organized Health Care Education/Training Program; Emergency Provider Emergency Medicine; PCP Internal Medicine; Visit Provider Family Medicine
DX: R07.89 Other chest pain (principal); E03.9 Hypothyroidism, unspecified; E78.5 Hyperlipidemia, unspecified; I16.0 Hypertensive urgency; R20.2 Paresthesia of skin; R20.0 Anesthesia of skin; I10 Essential (primary) hypertension; E86.0 Dehydration; R79.89 Other specified abnormal findings of blood chemistry; E11.9 Type 2 diabetes mellitus without complications; I45.10 Unspecified right bundle-branch block; Z79.899 Other long term (current) drug therapy; Z79.82 Long term (current) use of aspirin; Z79.4 Long term (current) use of insulin
CPT/HCPCS: 36415; 71045; 71275; 78452; 80048; 80061; 82962; 83036; 84484; 85025; 85379; 93005; 93017; 93306; 96360; 96361; 99218; 99285; A9500; J7030; Q9957; Q9967; A4216; C8929; G0378; J2785

== ENCOUNTER → 2020-05-25 07:41 | Outpatient (CLI) | payer OTHER, SELFPAY ==
[2020-05-19 15:32] VITALS: BMI 36.1
[2020-05-25 07:51] VITALS: BP 129/73; PULSE 92; RESP 14; O2SAT 96; BMI 35.9
[2020-05-25 08:10] VITALS: BP 132/78; PULSE 87
[2020-05-25] MEDS: Metoprolol Tartrate 5 MG/5 ML Vial IV ×3 (08:10→08:22)
[2020-05-25 08:16] VITALS: BP 125/74; PULSE 87
[2020-05-25 08:22] VITALS: BP 135/81; PULSE 87
[2020-05-25 08:26] VITALS: BP 122/76; PULSE 86; RESP 14; O2SAT 95
[2020-05-25 09:19] VITALS: BP 127/73; PULSE 82; RESP 14; O2SAT 98
== END ==
PROVIDERS: PCP Internal Medicine; Referring Provider Internal Medicine Cardiovascular Disease; Visit Provider Internal Medicine Cardiovascular Disease
DX: R69 Illness, unspecified (principal)
CPT/HCPCS: A4216

== ENCOUNTER 2020-09-29 13:55 | Outpatient (RCR) | payer OTHER, SELFPAY ==
[2020-05-25 07:51] VITALS: BMI 35.9
[2020-09-29] MEDS: COVID-19 VACC, MRNA(PFIZER)/PF 30 MCG/0.3 ML SYRINGE IM (15:25)
[2020-10-20] MEDS: COVID-19 VACC, MRNA(PFIZER)/PF 30 MCG/0.3 ML SYRINGE IM (15:04)
== END 2020-09-29 23:59 ==
LOC: IMMUN 13:55
PROVIDERS: PCP Internal Medicine; Referring Provider Family Medicine; Visit Provider Family Medicine
DX: Z23 Encounter for immunization (principal)
CPT/HCPCS: 0001A; 0002A; 91300

== ENCOUNTER → 2024-07-01 | Outpatient (CLI) | payer MEDICARE, OTHER, SELFPAY ==
--- NOTE | 2024-07-01 10:55 | BD_ITS ---
STUDY: DUAL ENERGY X-RAY ABSORPTIOMETRY / DXA REASON FOR EXAM: Female, 64 years old. [id number] -- Postmenopausal status TECHNIQUE: Bone Mineral Density (BMD) measurements of lumbar spine and bilateral hips were obtained. COMPARISON: None. FINDINGS: Lumbar Spine (L1-L4): g/cm2 (1.169) / T-score (1.1) / Z-score (3.0) Findings are suggestive of normal bone density with a low fracture risk. Left Femur Total: g/cm2 (1.272) / T-score (2.7) / Z-score (4.0) Left Femoral Neck: g/cm2 (0.923) / T-score (0.7) / Z-score (2.2) Right Femur Total: g/cm2 (1.203) / T-score (2.1) / Z-score (3.4) Right Femoral Neck: g/cm2 (0.983) / T-score (1.2) / Z-score (2.8) BD/Dexa Bone Density Study IMPRESSION: The patient is considered normal as outlined below according to [employer] (WHO) criteria with a low fracture risk. Reference Information: The T-score is the number of standard deviations above or below the standard which is normal for young adults at their peak bone mineral density. The World Health Organization (WHO) interprets the T-scores as follows: Above -1 Normal bone density Between -1 and -2.5 Osteopenia Equal to / or below -2.5 Osteoporosis As a practical clinical guideline, osteopenia may be graded as follows: Mild -1 through -1.5 Moderate -1.6 through -2.0 Severe -2.1 through -2.4 The Z-score is the number of standard deviations above or below age-matched controls. A Z-score of less than -1.5 would be considered abnormal. References: 1. NIH Osteoporosis and Related Bone Diseases www osteo.org 2. International Society for Clinical Densitometry www iscd.org 3. National Osteoporosis Foundation www nof.org Electronically Signed: Freedom Pugh MD at 10:14 EST ,
== END | disposition home or self-care (01) ==
PROVIDERS: PCP Internal Medicine; Referring Provider Internal Medicine; Visit Provider Internal Medicine
DX: Z78.0 Asymptomatic menopausal state (principal)
CPT/HCPCS: 77080